=== PATIENT | male | born 1950 | race Caucasian/White ===

== ENCOUNTER 2020-05-30 22:28 | Inpatient (IN) | payer MEDICARE ==
[~2020-05-30 22:28] MED LIST: Heparin 10,000 UNITS/ 10 ML VIAL ONE; Metoprolol Tartrate 5 MG/5 ML VIAL ONE
[2020-05-30] MEDS ORDERED: Aspirin 300 MG Suppository ONE (22:45)
[2020-05-30 22:50] LABS: Actual Bicarbonate (HCO3a) 14.1 mEq/L (22-28); Analyzer IN Cardio ER; Base Excess (BEa) -14.9 mEq/L (-2.0 to +3.0); CO2 Tension 44.3 mmHg (35.0-45.0); Calcium, Ionized (arterial) 1.27 mmol/L (1.12-1.30); Carboxyhemoglobin (COHb) 2.6 gm% (0.0-3.0); Hemoglobin (Hb) 15.3 g/dL (14.0-18.0); O2 Tension (PaO2), arterial 315.8 mmHg (> 70.0)
[2020-05-30 22:54] LABS: pH, Arterial 7.12 (7.35-7.45)
[2020-05-30 22:55] LABS: ALV-art Gradient 341.825 mmHg (0-20); Puncture Site LRA
[2020-05-30 22:57] LABS: #Basophils 0.1 thou/uL (0.0-0.2); #Eosinphils 0.4 thou/uL (0.0-0.7); #Lymphocytes 5.3 thou/uL (1.20-3.40); #Monocytes 0.9 thou/uL (0.11-0.59); #Neutrophils 12.4 thou/uL (1.40-6.50); %Basophils 0.6 % (0.0-1.0); %Eosinophils 2.3 % (0.0-10.0); %Lymphocytes 27.5 % (21.0-51.0); %Monocytes 4.8 % (0.0-10.0); %Neutrophils 64.8 % (42.0-75.0); Hemoglobin 15.6 g/dL (14.0-18.0); Mean Corpuscular HGB CONC 33.7 g/dL (32.0-36.0); Mean Corpuscular Volume 95.1 fL (78.0-98.0); Mean Platelet Volume 8.7 fL (7.4-10.4); Platelet Count 227 thou/uL (130-400); RBC Distribution Width 12.9 % (11.5-14.5); Red Blood Cell (RBC) Count 4.87 mill/uL (4.70-6.10); White Blood Cell (WBC) Count 19.2 thou/uL (4.8-10.8)
[2020-05-30 23:02] LABS: INR-International Normal Ratio 1.1; Prothrombin Time 14.3 sec (12.0-14.7)
[2020-05-30] MEDS ORDERED: fentaNYL Citrate/PF 2,000 MCG in Sodium Chloride 0.9% 60 ML IV SCH (23:15)
[2020-05-30 23:18] LABS: ALT (SGPT) 479 U/L (8-55); AST (SGOT) 557 U/L (5-34); Albumin 3.9 g/dL (3.4-4.8); Alkaline Phosphatase 79 U/L (40-110); Anion Gap 27 mmol/L (10-20); BUN (Urea Nitrogen) 20 mg/dL (8.4-25.7); Bilirubin, Total 0.6 mg/dL (0.2-1.2); Calc. Creatinine Clearance 0 mL/min (70-130); Calcium 9.8 mg/dL (7.8-10.44); Carbon Dioxide 13 mmol/L (23-31); Chloride 105 mmol/L (98-107); Estimated GFR-MDRD 53; Globulin 2.9 g/dL (2.4-3.5); Glucose 174 mg/dL (83-110); Potassium 3.2 mmol/L (3.5-5.1); Protein, Total 6.8 g/dL (5.8-8.1); Sodium 142 mmol/L (136-145)
[2020-05-30 23:19] LABS: Acetaminophen Less than 6.0 mcg/mL (10.0-30.0); Alcohol 26 mg/dL (Less than 10); Lipase 41 U/L (8-78); Magnesium 2.3 mg/dL (1.6-2.6); Salicylate Less than 8.0 mg/dL (15.0-30.0)
--- NOTE | 2020-05-30 23:32 | RAD ---
Chest one view HISTORY: Dyspnea. CODE BLUE in progress. FINDINGS: Extensive overlying artifact. Mediastinum is midline. Nasogastric tube descends to the abdo men. No gross pneumothorax or lobar consolidation evident. Tip of the endotracheal catheter overlies the thoracic inlet. IMPRESSION : Endotracheal catheter is in good radiographic position.
[2020-05-30] MEDS ORDERED: Heparin 10,000 UNITS/ 10 ML VIAL ONE (23:57)
[2020-05-30] MEDS ORDERED: Atropine Sulfate 1 mg/10 ml Syringe ONE (23:57)
[2020-05-31] MEDS ORDERED: TICAGRELOR 90 MG TABLET ONE (00:04)
[2020-05-31 00:14] LABS: CKMB 41.8 ng/mL (0-6.6)
[2020-05-31] MEDS ORDERED: Propofol 1,000 MG/100 ML VIAL IV ONE (01:09)
--- NOTE | 2020-05-31 01:11 | HP ---
INDICATION FOR ADMISSION: This is a 69-year-old gentleman with acute ST-segment elevation anterior myocardial infarction. HISTORY OF PRESENT ILLNESS: This is a 69-year-old gentleman with a very little history. No family was available. We attempted the phone call, still no available family. Apparently, it was a witnessed collapse at home when CPR was initiated by the family members. EMS was called. They arrived, he was given medications, epinephrine, bicarb, calcium, and was resuscitated. He was brought to the emergency room and still suffered an acute anterior myocardial infarction. He will be taken emergently to the cardiac labor economics professor. PAST MEDICAL HISTORY: Only significant for prostate cancer. We have no other past medical history. SOCIAL HISTORY: Unknown. FAMILY HISTORY: Unknown. ALLERGIES: UNCLEAR. HOME MEDICATIONS: 1. There are no medications listed. He was given also en route Ativan, ketamine, and etomidate. 2. He had been given epinephrine, bicarb, and calcium. 3. At the time in the emergency room, he also was given metoprolol, aspirin, 5000 heparin, and he is on a dopamine drip when I originally arrived to the emergency room. REVIEW OF SYSTEMS: Unobtainable. PHYSICAL EXAMINATION: GENERAL: Reveals a well-developed, well-nourished, thin gentleman in no acute distress. It is unable to determine that because he is already intubated and sedated. VITAL SIGNS: Blood pressure is 108/65, heart rate is 91 and shows atrial fibrillation. HEENT: Unremarkable. CHEST: Clear anteriorly. CARDIOVASCULAR: Reveals an irregularly irregular rhythm. Heart sounds are somewhat distant. There were no gross murmurs. ABDOMEN: Soft, flat, and no obvious masses. EXTREMITIES: Show no clubbing, cyanosis, or edema. Pedal pulses are difficult to palpate. NEUROLOGICAL: Again, the patient is sedated. DIAGNOSTIC STUDIES: EKG shows atrial fibrillation with acute anterior myocardial infarction. Laboratory data is pending. IMPRESSION: To take the patient urgently to the cardiac labor economics professor due to the myocardium at risk with a large anterior myocardial infarction. No family members were available. In the emergency situation, it was initiated and the patient was taken to the cardiac labor economics professor. Job ID: [id number]
[2020-05-31] MEDS ORDERED: Propofol 1,000 MG/100 ML VIAL IV PRN (01:15)
[2020-05-31] MEDS ORDERED: Mag-Al 1200 mg/1200 mg/30 ML UDCUP PO PRN (01:15)
[2020-05-31] MEDS ORDERED: Milk Of Magnesia 30 ML UDCUP PO PRN (01:15)
[2020-05-31] MEDS ORDERED: Acetaminophen/Codeine 30-300mg Tablet PO PRN ×2 (01:15)
[2020-05-31] MEDS ORDERED: Morphine 2 MG/ML VIAL SLOW IVP PRN (01:15)
[2020-05-31] MEDS ORDERED: Propofol BOLUS 1,000 MG/100 ML VIAL IV PRN (01:15)
[2020-05-31] MEDS ORDERED: Fentanyl BOLUS 250 ML IVPB PRN (01:15)
[2020-05-31] MEDS ORDERED: TICAGRELOR 90 MG TABLET PO SCH (01:15)
[2020-05-31] MEDS ORDERED: Zolpidem Tartrate 5 MG TAB PO PRN (01:15)
[2020-05-31] MEDS ORDERED: cloNIDine 0.1 MG TAB PO PRN (01:15)
[2020-05-31] MEDS: DOPamine 400 MG/D5W 250 ML 250 ML IVPB SCH ×6 (01:20→21:24)
[2020-05-31] MEDS: fentaNYL Citrate/PF 2,000 MCG in Sodium Chloride 0.9% 60 ML IV SCH ×2 (01:30→21:22)
[2020-05-31] MEDS ORDERED: Vecuronium 10 MG VIAL ONE (02:18)
[2020-05-31] MEDS ORDERED: Sterile Water 10 ML ONE (02:19)
[2020-05-31] MEDS: Vecuronium 10 MG VIAL IVP PRN ×2 (02:20→08:40)
[2020-05-31] MEDS ORDERED: Vecuronium 10 MG VIAL IV PRN (02:28)
[2020-05-31] MEDS ORDERED: Heparin 25,000 units/D5W 25,000 UNIT in Premix Bag 1 BAG IV SCH (03:00)
[2020-05-31] MEDS: Sodium Chloride 0.9% 1,000 ML IV SCH ×3 (03:01→23:15)
[2020-05-31 05:31] LABS: Troponin I 35.367 ng/mL (< 0.028)
[2020-05-31 07:41] VITALS: BMI 22.2
[2020-05-31 07:51] LABS: Actual Bicarbonate (HCO3a) 20.8 mEq/L (22-28); Base Excess (BEa) -4.3 mEq/L (-2.0 to +3.0); CO2 Tension 38.1 mmHg (35.0-45.0); Calcium, Ionized (arterial) 1.19 mmol/L (1.12-1.30); Carboxyhemoglobin (COHb) 0.5 gm% (0.0-3.0); O2 Tension (PaO2), arterial 87.9 mmHg (> 70.0); Potassium - ABG Lab 3.33 mmol/L (3.70-5.30); pH, Arterial 7.35 (7.35-7.45)
[2020-05-31 07:52] LABS: Puncture Site RFA
[2020-05-31 07:53] LABS: ALV-art Gradient 256.625 mmHg (0-20)
[2020-05-31 07:57] LABS: ALT (SGPT) 415 U/L (8-55); AST (SGOT) 646 U/L (5-34); Albumin 3.4 g/dL (3.4-4.8); Alkaline Phosphatase 57 U/L (40-110); Anion Gap 15 mmol/L (10-20); BUN (Urea Nitrogen) 25 mg/dL (8.4-25.7); Bilirubin, Total 0.5 mg/dL (0.2-1.2); Calc. Creatinine Clearance 57 mL/min (70-130); Calcium 8.5 mg/dL (7.8-10.44); Carbon Dioxide 16 mmol/L (23-31); Chloride 109 mmol/L (98-107); Estimated GFR-MDRD 63; Globulin 2.6 g/dL (2.4-3.5); Glucose 195 mg/dL (83-110); Potassium 3.4 mmol/L (3.5-5.1); Sodium 137 mmol/L (136-145)
[2020-05-31 08:05] LABS: Hemoglobin 14.9 g/dL (14.0-18.0); Mean Corpuscular HGB CONC 33.2 g/dL (32.0-36.0); Mean Corpuscular Hemoglobin 30.9 pg (27.0-31.0); Mean Corpuscular Volume 93.2 fL (78.0-98.0); Mean Platelet Volume 8.8 fL (7.4-10.4); Platelet Count 235 thou/uL (130-400); RBC Distribution Width 12.8 % (11.5-14.5); Red Blood Cell (RBC) Count 4.82 mill/uL (4.70-6.10)
[2020-05-31 08:08] LABS: Band 18 % (5-11); Lymphocytes 3 % (21-51); MDiff Complete? YES; Monocytes 4 % (0-10); Neutrophil 75 % (42-75); RBC Morphology Normal
--- NOTE | 2020-05-31 08:22 | RAD ---
Exam: Chest one view HISTORY:Intubated patient. Status post cardiac catheterization. Comparison: 05/30/2020 FINDINGS: Cardiac silhouette:Normal heart size Lines and tubes: Endotracheal tube at the level of the clavicles. Nasogastric tube extends below the diaphragm. Seen. Aorta: Unremarkable Pulmonary vessels: Normal Costophrenic angles: Clear LUNGS: No masses or consolidation. Pneumothorax: None Osseous abnormalities: None IMPRESSION: 1. No acute cardiopulmonary process. 2. Endotracheal and nasogastric tube as above.
[2020-05-31] MEDS: Lorazepam 2 MG/ML VIAL SLOW IVP PRN ×2 (08:40→12:20)
[2020-05-31] MEDS: TICAGRELOR 90 MG TABLET PO SCH ×2 (09:53→21:23)
[2020-05-31] MEDS: Aspirin Chewable 81 MG TAB PO SCH (09:53)
[2020-05-31] MEDS: Carvedilol 3.125 MG TAB PO SCH ×2 (09:54→21:23)
[2020-05-31] MEDS: Lisinopril 2.5 MG TAB PO SCH (09:54)
[2020-05-31 11:43] LABS: Critical Call Chem Troponin I 0; Troponin I Greater than 45.000 ng/mL (< 0.028)
[2020-05-31 15:46] LABS: SARS-CoV-2 MS2 Positive; SARS-CoV-2 N Gene Negative; SARS-CoV-2 S Gene Negative; SARS-CoV-2 by NAA Not Detected (NotDetected); SARS-CoV-2 orf1ab Negative
--- NOTE | 2020-06-01 00:55 | CON ---
DATE OF CONSULTATION: 05/31/2020 Mr. Olsen is a 69-year-old male who had an [id number]-kwxlcnby arrest. Family CPR followed by ENT arrival and resuscitation led to intubation. He has undergone cardiac catheterization. Surprisingly, chest x-ray is free of infiltrates. I was consulted because of his presence in the Critical Care Unit. PAST MEDICAL HISTORY: Remarkable for prostate cancer. FAMILY HISTORY: Unknown. SOCIAL HISTORY: Unknown. ALLERGIES: UNKNOWN. MEDICATIONS: Unknown. REVIEW OF SYSTEMS: Unknown. PHYSICAL EXAMINATION: GENERAL: He was examined earlier this morning. He was unresponsive, although he did have spontaneous respiratory movement, did respond to pain. VITAL SIGNS: Respiratory rate is 20, FiO2 is 55, heart rate in the 90s, blood pressure 110/66. This evening, he was examined twice today. LUNGS: Clear. HEART: Regular rhythm. ABDOMEN: Soft. EXTREMITIES: Without asymmetry or edema. LABORATORY DATA: White count 27, hemoglobin 14.9, platelets 235. Sodium 137, potassium 3.4, chloride 109, bicarb 16, BUN 25, creatinine 1.15. is greater than 45. As of this morning, pH 7.35, CO2 38, PO2 87. IMPRESSION: 1. Myocardial infarction. 2. Status post emergent cardiac catheterization. 3. Status post prolonged CPR with unclear neurological status. We will continue mechanical ventilation, awaiting hopeful recovery of neurological function before we consider weaning or extubation. He is not clinically in congestive heart failure at this time, which is a plus. He is also not brain . He has spontaneous respiratory effort, but he has a very low functional neurological level at this point in time. We will continue to follow the other physicians caring for him. CRITICAL CARE TIME: 30 minutes. Job ID: [id number] MTDD
[2020-06-01] MEDS: DOPamine 400 MG/D5W 250 ML 250 ML IVPB SCH ×3 (03:29→21:27)
[2020-06-01] MEDS: Lorazepam 2 MG/ML VIAL SLOW IVP PRN (04:25)
[2020-06-01] MEDS: Vecuronium 10 MG VIAL IVP PRN (04:25)
[2020-06-01 04:32] LABS: #Lymphocytes 1.7 thou/uL (1.20-3.40); #Neutrophils 17.5 thou/uL (1.40-6.50); %Basophils 0.1 % (0.0-1.0); %Eosinophils 0.2 % (0.0-10.0); %Monocytes 9.4 % (0.0-10.0); %Neutrophils 82.4 % (42.0-75.0); Mean Corpuscular HGB CONC 33.3 g/dL (32.0-36.0); Mean Corpuscular Hemoglobin 31.5 pg (27.0-31.0); Mean Corpuscular Volume 94.6 fL (78.0-98.0); Mean Platelet Volume 9.4 fL (7.4-10.4); Platelet Count 185 thou/uL (130-400); RBC Distribution Width 12.8 % (11.5-14.5); Red Blood Cell (RBC) Count 4.44 mill/uL (4.70-6.10); White Blood Cell (WBC) Count 21.2 thou/uL (4.8-10.8)
[2020-06-01 04:38] LABS: ALT (SGPT) 296 U/L (8-55); AST (SGOT) 301 U/L (5-34); Albumin 3.4 g/dL (3.4-4.8); Alkaline Phosphatase 47 U/L (40-110); Anion Gap 13 mmol/L (10-20); BUN (Urea Nitrogen) 32 mg/dL (8.4-25.7); Bilirubin, Total 0.8 mg/dL (0.2-1.2); Calc. Creatinine Clearance 73 mL/min (70-130); Calcium 8.4 mg/dL (7.8-10.44); Carbon Dioxide 23 mmol/L (23-31); Chloride 106 mmol/L (98-107); Estimated GFR-MDRD 83; Globulin 2.7 g/dL (2.4-3.5); Glucose 167 mg/dL (83-110); Magnesium 1.6 mg/dL (1.6-2.6); Phosphorus 3.5 mg/dL (2.3-4.7); Potassium 3.8 mmol/L (3.5-5.1); Protein, Total 6.1 g/dL (5.8-8.1); Sodium 138 mmol/L (136-145)
[2020-06-01 07:27] LABS: Actual Bicarbonate (HCO3a) 21.5 mEq/L (22-28); Base Excess (BEa) -2.7 mEq/L (-2.0 to +3.0); CO2 Tension 35.7 mmHg (35.0-45.0); Calcium, Ionized (arterial) 1.16 mmol/L (1.12-1.30); Carboxyhemoglobin (COHb) 0.6 gm% (0.0-3.0); Hemoglobin (Hb) 14.5 g/dL (14.0-18.0); O2 Tension (PaO2), arterial 227.1 mmHg (> 70.0); Potassium - ABG Lab 3.54 mmol/L (3.70-5.30)
[2020-06-01 07:28] LABS: ALV-art Gradient 441.275 mmHg (0-20); Puncture Site Arterial Line
--- NOTE | 2020-06-01 07:52 | PDOC.BPN ---
- Brief Progress Note Encounter Date: 06/01/20 Encounter Time: 07:45 code blue called. responded to request for hospitalist at 7:10. Patient post PCI for AAMI 2 days ago. patient in SVT. given magnesium IV . rhythm converted to sinus tachycardia with PACs and PVCs. Spoke with Dr Hernandez, data security consultant cardiology. patient stable in RSR. Ended critical care at 7:45. formal consult pending
--- NOTE | 2020-06-01 08:05 | RAD ---
EXAM: Single view of the chest HISTORY: Respiratory failure status post intubation COMPARISON: 05/31/2020 FINDINGS: Single view of the chest shows a normal sized cardiomediastinal silhouette. The endotrache al tube and NG tube are unchanged in position. There is a veil like opacity in the left thorax which likely represents a layering pleural effusion. No acute osseous abnormality. IMPRESSION: Small left pleural effusion
[2020-06-01 08:06] LABS: Anion Gap 15 mmol/L (10-20); BUN (Urea Nitrogen) 28 mg/dL (8.4-25.7); Calc. Creatinine Clearance 78 mL/min (70-130); Calcium 8.2 mg/dL (7.8-10.44); Carbon Dioxide 20 mmol/L (23-31); Chloride 106 mmol/L (98-107); Estimated GFR-MDRD 90; Glucose 169 mg/dL (83-110); Magnesium 3.1 mg/dL (1.6-2.6); Phosphorus 3.3 mg/dL (2.3-4.7); Sodium 137 mmol/L (136-145)
[2020-06-01 08:10] LABS: #Lymphocytes 1.6 thou/uL (1.20-3.40); #Monocytes 2.1 thou/uL (0.11-0.59); #Neutrophils 16.5 thou/uL (1.40-6.50); %Eosinophils 0.1 % (0.0-10.0); %Lymphocytes 8.1 % (21.0-51.0); %Monocytes 10.2 % (0.0-10.0); %Neutrophils 81.6 % (42.0-75.0); Hemoglobin 13.6 g/dL (14.0-18.0); Mean Corpuscular HGB CONC 31.7 g/dL (32.0-36.0); Mean Corpuscular Hemoglobin 30.1 pg (27.0-31.0); Mean Corpuscular Volume 94.9 fL (78.0-98.0); Mean Platelet Volume 9.8 fL (7.4-10.4); Platelet Count 187 thou/uL (130-400); RBC Distribution Width 12.8 % (11.5-14.5); Red Blood Cell (RBC) Count 4.51 mill/uL (4.70-6.10); White Blood Cell (WBC) Count 20.2 thou/uL (4.8-10.8)
[2020-06-01 08:23] LABS: Band 16 % (5-11); Lymphocytes 6 % (21-51); MDiff Complete? YES; Monocytes 11 % (0-10); Neutrophil 67 % (42-75); RBC Morphology Normal
[2020-06-01 09:03] LABS: CKMB 74.3 ng/mL (0-6.6); Troponin I 24.492 ng/mL (< 0.028)
[2020-06-01] MEDS: Aspirin Chewable 81 MG TAB PO SCH ×2 (09:12→15:09)
[2020-06-01] MEDS: TICAGRELOR 90 MG TABLET PO SCH ×3 (09:12→21:27)
[2020-06-01] MEDS: Carvedilol 3.125 MG TAB PO SCH ×2 (09:12→21:27)
[2020-06-01] MEDS: Lisinopril 2.5 MG TAB PO SCH (09:12)
[2020-06-01] MEDS: Ondansetron PF 4 MG/2 ML Vial IVP PRN ×2 (10:01→15:08)
[2020-06-01] MEDS ORDERED: Amiodarone 150 MG, Admixture Fee 1 EACH in Dextrose 5% in Water 100 ML IVPB SCH (10:15)
[2020-06-01] MEDS: Amiodarone 450 MG, Admixture Fee 1 EACH in Dextrose 5% in Water 250 ML IVPB SCH ×2 (10:49→17:10)
[2020-06-01] MEDS ORDERED: FLU VACC QS2020-21(65YR UP)/PF 240 MCG/0.7 ML SYRINGE IM ONE (11:00)
--- NOTE | 2020-06-01 11:19 | PDOC.PALCO ---
Palliative Care Consult - Consult Details Requesting Physician: Dr Diaz Reason for Consult: goals of care, assistance with communication prognosis/disease, complex decision-making - Pertinent HPI 69 year old male who moved to [place] 4-5 years ago to live close to his brother and his . He had just finished visiting with them, went to his camper that is on their property, then returned with complaint of chest pain. He collapsed and CPR was initiated as well as notification of EMS. Intubated, transported to Emergency room where he suffered an acute anterior myocaridal infarction. Emergency to the cardiac cathead worker, subsequent admission to CCU. - Social History Smoking Status: Current every day smoker Alcohol Use: occasional Drug Use History: none Living Situation: independent - Medications MAR Reviewed: Yes - Allergies Allergies/Adverse Reactions: Allergies Allergy/AdvReac Type Severity Reaction Status Date / Time No Known Allergies Allergy Unverified 05/30/20 23:08 - Subjective Non responsive, intubated, sedated. - ROS Non Response: due to endotracheal tube, due to mental status - Objective Vital Signs: Vital Signs - Most Recent Temp Pulse Resp BP Pulse Ox 99.4 F 118 H 20 120/76 100 06/01/20 08:00 06/01/20 10:46 06/01/20 10:00 06/01/20 09:12 06/01/20 08:00 Palliative Performance Scale: 20 - Physical Exam Constitutional: encephalitic, ill appearing HEENT: moist MMs, sclera anicteric Respiratory: no wheezing Cardiovascular: irregular Gastrointestinal: soft, non-tender Genitourinary: thrasher catheter Musculoskeletal: no cyanosis, no clubbing, no edema Deviation from normal: No purposeful movement Skin: cap refill <2 seconds Deviation from normal: Non responsive - Problem List (1) Acute myocardial infarction due to left coronary artery occlusion Code(s): I21.9 - ACUTE MYOCARDIAL INFARCTION, UNSPECIFIED Current Visit: Yes Status: Acute (2) Anoxic brain injury Current Visit: Yes Status: Acute (3) Hypotension Current Visit: Yes Status: Acute Qualifiers: Hypotension type: other hypotension type Qualified Code(s): I95.89 - Other hypotension (4) Ventricular tachycardia Code(s): I47.2 - VENTRICULAR TACHYCARDIA Current Visit: Yes Status: Acute (5) Cardiomyopathy Code(s): I42.9 - CARDIOMYOPATHY, UNSPECIFIED Current Visit: Yes Status: Suspected Qualifiers: Cardiomyopathy type: ischemic Qualified Code(s): I25.5 - Ischemic cardiomyopathy - Plan/Recommendations Plan: Met with patient younger brother Patrick Olsen and his significant other Mercedes as well as patient girlfriend Josy. Patrick states he is MPOA and will forward documents to have placed in chart. Life review, [place] grew up [place] farm, moved to live with his brother the past 5 years on property in [place]. Enjoys motorcycles and has a Yorkie he loves. No children Discussed cardiac events this morning, and concern of potential anoxic brain injury. Reviewed that decision Patrick would make would be what his brother would desire. Emotional Support and Therapeutic listening. Spiritual care consult placed [75] minutes spent on this encounter with >50% of the time in counseling and coordination of care. Thank you for this very appropriate consult.
--- NOTE | 2020-06-01 13:28 | CON ---
DATE OF CONSULTATION: Consultation to Dr. Ronny Diaz. I first saw Mr. Olsen this morning shortly after 7 o'clock when a request was made overhead for hospitalist in room C6. Mr. Olsen at that time was intubated and ventilated, was in sustained ventricular tachycardia. At that point, he was given IV magnesium, settled into an intermittent sinus rhythm, supraventricular tachycardia, occasional PVCs in couplets. He did have adequate blood pressure. His neurological exam at that time, he was noted to have nonfocal reflexes. He did have small pupils which were responsive when I first saw him. He is currently still intubated, ventilated, currently unresponsive. IMMEDIATE PAST MEDICAL HISTORY: Pertinent for an acute anterior myocardial infarction post PCI by Dr. Ronny Diaz. He apparently had a witnessed collapse at home where CPR was initiated by family members. His other past medical history included only prostate cancer. FAMILY HISTORY: Father with history of heart attack and coronary artery disease. OUTPATIENT MEDICATIONS: None. SOCIAL HISTORY: . at bedside. Code status, Smokes one pack of cigarettes a day. REVIEW OF SYSTEMS: Unobtainable due to his intubated state. PHYSICAL EXAMINATION: VITAL SIGNS: Current vital signs is blood pressure 117/81, pulse is ranging from one teens to 130. He is ventilated. FiO2 is currently 50%. HEENT: Reveals pupils to be approximately 4 mm and fixed. Negative doll's eyes. Sclerae are white. Tympanic membranes clear. Nose is clear. Oral mucous membranes are dry. Dental hygiene is fair. NECK: No jugular venous distention, adenopathy, or thyromegaly. CHEST: Breath sounds grossly clear bilaterally. HEART: Regular rate and rhythm with frequent irregular beats. No distinct murmurs heard. ABDOMEN: Soft. Bowel sounds are diminished. No tenderness. No pain. EXTREMITIES: No cyanosis or edema. PULSES: Carotid, radial pulses and femoral pulses intact. Pedal pulses were somewhat difficultly palpated. SKIN: Warm and dry. HEME/LYMPH: Revealed no tender or swollen lymph nodes in axilla, inguinal, or cervical area. NEUROLOGIC: Pupils equal but unreactive. Negative doll's eyes. Facies symmetric. Deep tendon reflexes diffusely diminished symmetrically. Toes downgoing bilaterally. IMAGING DATA: Chest x-ray done 05/10, revealed endotracheal and nasogastric tube. No other distinct abnormality. EKG shows acute anterior [place] with PACs and PVCs, both were looked at by myself. LABORATORY DATA: CBC; white count 20.2, hemoglobin 13.6, platelet count 187,000. Activated clotting time done yesterday 131. Most recent blood gas; pH 7.40, CO2 of 35.7, O2 of 221.7 on PEEP 100% O2. Comp metabolic profile shows sodium 137, potassium 4.0, BUN 28, creatinine 0.84, blood sugar 170, elevated AST and ALT. Troponin has dropped from 45,000 to 25,000. Toxicology showed a blood alcohol of 26. COVID was negative. ASSESSMENT: Acute anterior wall myocardial infarction, sustained ventricular tachycardia, reperfusion rhythm abnormalities, cardiomyopathy, anoxic brain injury, severe coronary artery disease. PLAN: The patient is currently intubated. On IV amiodarone for rhythm abnormality suppression. The patient also on aspirin, Coreg, and lisinopril ordered. Sedation protocol currently off. Add Brilinta to current medication regimen. Currently, an echocardiogram has been ordered. Thank you for the consult. We will follow closely. Discuss with Cardiology, Pulmonology. Job ID: [id number] ROBERTO
--- NOTE | 2020-06-01 14:13 | PQF ---
CLINICAL DOCUMENTATION CLARIFICATION FORM: Dear Dr. Jim Johnson Date: 06/01/2020 8781 Please exercise your independent, professional judgment in responding to the clarification form. Clinical indicators areprovided on the bottom of this form for your review. Please check appropriate box(es): [ ] Acute Respiratory Failure: [ ] with Hypoxia [ ] with Hypercapnia [ x ] Acute Respiratory Failure due to: (etiology) __post cardiopulmonary arrest [ ] Hypoxia [ ] Other diagnosis [ ] Unable to determine In addition, please specify: Present on Admission (POA): [x ] Yes [ ] No [ ] Unable to determine For continuity of documentation, please document condition throughout progress notes and discharge summary. Thank You. To be completed by CDI/Coding staff for physician review: CLINICAL INDICATORS - SIGNS / SYMPTOMS / LABS / RESULTS AND LOCATION IN MR Pt arrived intubated on ventilator support// GCS 3, ROSC status post approximately 30 minutes of CPR. (ED report ) 05/30 05/30 ABG PH 7.12 RISK FACTORS / RESULTS AND LOCATION IN MR Large anterior myocardial infarction (Emily/ H& P ) 05/31 Anoxic brain injury ( lAex/ consult ) 06/01 TREATMENTS / RESULTS AND LOCATION IN MR Mechanical Ventilation (05/31 present) Pulmonology consult ( 06/01) Acute Respiratory Failure: ABG pH < 7.35 or > 7.45; Decreased oxygen saturation (<90% room air or < 95% on oxygen); PCO2 > 50 mm Hg; PO2 < 60 mm Hg; Labored or rapid respirations ARDS: Dx Criteria [[place] ARDS]: Respiratory symptoms within one week of a known clinical insult (e.g. shock, infection, surgery, trauma) Bilateral opacities in CXR/Chest CT not due to CHF or fluid THANK YOU! CDS Signature: Maura Eastman RN Phone #: [phone] Date: 06/01/2020 This is a permanent part of the Medical Record [facility]
[2020-06-01] MEDS: Scopolamine 1.5 mg/72 hour Patch TD SCH (14:35)
[2020-06-01] MEDS: Sodium Chloride 0.9% 1,000 ML IV SCH ×2 (14:36→17:07)
--- NOTE | 2020-06-01 17:40 | PRG ---
DATE OF SERVICE: 06/01/2020 SUBJECTIVE: Mr. Olsen had a ventricular tachycardia arrest again this morning. He was resuscitated. I met with family afterwards. OBJECTIVE: VITAL SIGNS: Heart rates in the 90s, blood pressure , respiratory rate is 20. NEUROLOGICAL: There has really been no change in his neurological exam. There has been no meaningful improvement. LUNGS: Clear. HEART: Regular rhythm. ABDOMEN: Soft. LABORATORY DATA: White count 20, hemoglobin 13.6, and platelets 187. Sodium 137, potassium 4, chloride 106, bicarb 20, BUN 28, creatinine 0.8. PH 7.4, CO2 of 35, pO2 of 227. IMPRESSION AND PLAN: Cardiac arrest secondary to recent myocardial infarction. His prognosis is quite guarded for neurological recovery. I met with family and answered all their questions. We will continue . CRITICAL CARE TIME: 30 minutes. Job ID: [id number]
[2020-06-02] MEDS: Lorazepam 2 MG/ML VIAL SLOW IVP PRN (00:48)
[2020-06-02] MEDS: Vecuronium 10 MG VIAL IVP PRN (00:48)
[2020-06-02] MEDS: fentaNYL Citrate/PF 2,000 MCG in Sodium Chloride 0.9% 60 ML IV SCH (03:11)
--- NOTE | 2020-06-02 07:41 | PDOC.HOSPP ---
- Subjective Encounter Date: 06/02/20 Encounter Time: 07:34 Subjective: spontaneous blinking. intubated - Objective Vital Signs & Weight: Vital Signs (12 hours) Temp Resp Pulse Ox 06/02/20 06:00 20 06/02/20 04:00 99.9 F H 20 06/02/20 02:00 20 06/02/20 00:00 99.5 F 20 06/01/20 22:00 20 06/01/20 20:00 99.5 F 20 100 Weight Admit Weight 150 lb Weight 150 lb 9.211 oz Most Recent Monitor Data Heart Rate from ECG 68 NIBP 99/63 NIBP BP-Mean 75 Respiration from ECG 20 SpO2 100 I&O: 06/01/20 06/02/20 06/03/20 06:59 06:59 06:59 Intake Total 3501.1 3349 Output Total 1315 1543 Balance 2186.1 1806 Result Diagrams: 06/01/20 07:30 06/01/20 07:30 Additional Labs: Accuchecks 06/01/20 14:48 POC Glucose 161 H Hospitalist ROS - Medication Medications: Active Medications Generic Name Dose Route Start Last Admin Trade Name Freq PRN Reason Stop Dose Admin Aspirin 81 mg 05/31/20 09:00 06/01/20 15:09 Aspirin Chewable 81 Mg Tab PO 81 mg DAILY JAMSHID Administration Carvedilol 3.125 mg 05/31/20 09:00 06/01/20 21:27 Carvedilol 3.125 Mg Tab PO 3.125 mg BID JAMSHID Administration Sodium Chloride 1,000 mls @ 85 mls/hr 05/31/20 01:15 06/01/20 17:07 Normal Saline 0.9% IV 1,000 mls .[id number] JAMSHID Administration Dopamine HCl/Dextrose 250 mls @ 0 mls/hr 05/31/20 01:15 06/01/20 21:27 Dopamine 400 Mg/D5w 250 Ml IVPB 250 mls INF JAMSHID Administration Protocol As Directed Fentanyl Citrate 2,000 mcg/ 100 mls @ 0 mls/hr 05/31/20 01:15 06/02/20 03:11 Sodium Chloride IV 06/30/20 01:15 100 mls INF JAMSHID Administration Protocol Per Protocol Amiodarone HCl 450 mg/ 259 mls @ 0 mls/hr 06/01/20 10:15 06/01/20 17:10 Miscellaneous Medication 1 IVPB 259 mls each/ Dextrose/Water INF JAMSHID Administration Protocol As Directed Lisinopril 2.5 mg 05/31/20 09:00 06/01/20 09:12 Lisinopril 2.5 Mg Tab PO Not Given DAILY JAMSHID Lorazepam 2 mg 05/31/20 01:15 06/02/20 00:48 Lorazepam 2 Mg/Ml Vial SLOW IVP 06/30/20 01:15 2 mg Q1H PRN Administration Breakthrough agitation Ondansetron HCl 4 mg 05/31/20 11:27 06/01/20 15:08 Ondansetron Pf 4 Mg/2 Ml Vial IVP 4 mg Q6H PRN Administration Nausea/Vomiting Propofol 1,000 mg 05/31/20 01:15 05/31/20 01:15 Propofol 1,000 Mg/100 Ml Vial IV 06/30/20 01:15 1,000 mg INF PRN Administration TO ACHIEVE GOAL RASS Protocol Scopolamine 1.5 mg 06/01/20 14:00 06/01/20 14:35 Scopolamine 1.5 Mg/72 Hour Patch TD 1.5 mg Q3D JAMSHID Administration Sodium Chloride 10 ml 05/31/20 09:00 06/01/20 21:27 Flush - Normal Saline 10 Ml Syringe IVF 10 ml Q12HR JAMSHID Administration Ticagrelor 90 mg 05/31/20 09:00 06/01/20 21:27 Ticagrelor 90 Mg Tablet PO 90 mg BID JAMSHID Administration Vecuronium [place] 10 mg 05/31/20 02:35 06/02/20 00:48 Vecuronium 10 Mg Vial IVP 10 mg Q30M PRN Administration VENT COMPLIANCE - Exam Neck: no JVD Heart: RRR, no murmur Respiratory - other findings: coarse BS Gastrointestinal: soft, normal bowel sounds Extremities: no edema Neurological - other findings: pupils 4mm, fixed. toes downgoing Hosp A/P (1) Anoxic brain injury Status: Acute (2) Acute myocardial infarction due to left coronary artery occlusion Code(s): I21.9 - ACUTE MYOCARDIAL INFARCTION, UNSPECIFIED Status: Acute (3) Ventricular tachycardia Code(s): I47.2 - VENTRICULAR TACHYCARDIA Status: Acute (4) Hypotension Status: Acute Qualifiers: Hypotension type: other hypotension type Qualified Code(s): I95.89 - Other hypotension (5) Cardiomyopathy Code(s): I42.9 - CARDIOMYOPATHY, UNSPECIFIED Status: Acute Qualifiers: Cardiomyopathy type: ischemic Qualified Code(s): I25.5 - Ischemic cardiomyopathy - Plan on vent iv amiodarone for V tach on dopamine for hypotension/cardiogenic shock antoplatelet Tx
[2020-06-02] MEDS: Amiodarone 450 MG, Admixture Fee 1 EACH in Dextrose 5% in Water 250 ML IVPB SCH ×2 (07:58→18:04)
[2020-06-02] MEDS: Lisinopril 2.5 MG TAB PO SCH (08:03)
[2020-06-02 09:11] LABS: Anion Gap 12 mmol/L (10-20); BUN (Urea Nitrogen) 31 mg/dL (8.4-25.7); Calc. Creatinine Clearance 71 mL/min (70-130); Calcium 8.2 mg/dL (7.8-10.44); Carbon Dioxide 24 mmol/L (23-31); Chloride 106 mmol/L (98-107); Estimated GFR-MDRD 81; Glucose 140 mg/dL (83-110); Potassium 3.8 mmol/L (3.5-5.1); Sodium 138 mmol/L (136-145)
[2020-06-02] MEDS: Carvedilol 3.125 MG TAB PO SCH ×2 (09:12→20:45)
[2020-06-02] MEDS: Aspirin Chewable 81 MG TAB PO SCH (09:12)
[2020-06-02] MEDS: TICAGRELOR 90 MG TABLET PO SCH ×2 (09:12→20:46)
[2020-06-02 09:22] LABS: Critical Call Chem Troponin I RESULT DECREASING; Troponin I 16.722 ng/mL (< 0.028)
[2020-06-02] MEDS: Sodium Chloride 0.9% 1,000 ML IV SCH ×3 (09:31→21:45)
--- NOTE | 2020-06-02 10:23 | RAD ---
PORTABLE CHEST 1 VIEW: DATE: 06/02/2020. TIME: 9:21 AM. HISTORY: Respiratory failure, myocardial infarction. COMPARISON: Previous day. FINDINGS: No significant interval change is seen. The endotracheal and nasogastric tubes remain in place. A l ayering left pleural effusion with atelectatic change at the left lung base is again seen. No pneumo thoraces are identified. IMPRESSION: Stable exam. POS: OFF
[2020-06-02] MEDS: DOPamine 400 MG/D5W 250 ML 250 ML IVPB SCH ×2 (10:39→23:22)
--- NOTE | 2020-06-02 11:32 | PDOC.PALPN ---
Palliative Progress Note - Subjective remains intubated with mechanical ventilation, no spontaneous respirations. Eyes open and blinking but does not appear to respond to name. - Objective Vital Signs: Vital Signs - Most Recent Temp Pulse Resp BP Pulse Ox 98.5 F 97 20 102/62 100 06/02/20 07:00 06/02/20 10:48 06/02/20 10:00 06/02/20 10:48 06/02/20 08:00 - Physical Exam Constitutional: ill appearing HEENT: EOMI, moist MMs Deviation from normal: Mechanical ventilation Gastrointestinal: soft, non-tender Genitourinary: thrasher catheter Musculoskeletal: no cyanosis, no clubbing Skin: cap refill <2 seconds - Assessment (1) Acute myocardial infarction due to left coronary artery occlusion Code(s): I21.9 - ACUTE MYOCARDIAL INFARCTION, UNSPECIFIED Current Visit: Yes Status: Acute (2) Anoxic brain injury Current Visit: Yes Status: Acute (3) Cardiomyopathy Code(s): I42.9 - CARDIOMYOPATHY, UNSPECIFIED Current Visit: Yes Status: Acute Qualifiers: Cardiomyopathy type: ischemic Qualified Code(s): I25.5 - Ischemic cardiomyopathy (4) Hypotension Current Visit: Yes Status: Acute Qualifiers: Hypotension type: other hypotension type Qualified Code(s): I95.89 - Other hypotension (5) Ventricular tachycardia Code(s): I47.2 - VENTRICULAR TACHYCARDIA Current Visit: Yes Status: Acute - Plan Plan: Communicated with patient LORRI and brother Ruma. Brother is understanding of poor prognosis, however would like to allow for a week post CPR to make a decision in relation to Trach/peg or withdraw of care. He feels he owes the time to his brother. Will continue to address resuscitation status even though the desire is to wait to Wednesday 06/06 to further discuss Goal of Care. [35] minutes spent on this encounter with >50% of the time in counseling and coordination of care. - ROS Non Response: due to endotracheal tube, due to mental status
[2020-06-02] MEDS ORDERED: levETIRAcetam in NS 3,000 MG in Premix Bag 2 BAG IVPB SCH (12:00)
--- NOTE | 2020-06-02 12:37 | CON ---
NEUROLOGY CONSULTATION DATE OF CONSULTATION: 06/02/2020 REASON FOR CONSULTATION: Altered mental status. HISTORY OF PRESENT ILLNESS: Mr. Olsen is a 69-year-old male presented to the hospital status post cardiac arrest and he was down for about 30 minutes prior to arrival to the hospital. Per records, there was a witnessed collapse at home where CPR was initiated by the family members. EMS were called and he was given epinephrine, bicarb, calcium, and resuscitated. He was down for about 30 minutes and then brought to the emergency room and had an acute anterior myocardial infarction . In the emergency room, he was given metoprolol, aspirin, and heparin and started on dopamine drip. He was taken emergently to the rn labor delivery, and since then, the patient has been altered since admission on 05/30/2020. Neurology was called for prognosis. Review of systems: Unobtainable due to patient mental status PAST MEDICAL HISTORY: Significant for prostate cancer. SOCIAL HISTORY: Unknown. FAMILY HISTORY: Unknown. Allergies: No known drug allergies Vital Signs & Weight: Vital Signs (12 hours) Temp Resp Pulse Ox 06/02/20 06:00 20 06/02/20 04:00 99.9 F H 20 06/02/20 02:00 20 06/02/20 00:00 99.5 F 20 06/01/20 22:00 20 06/01/20 20:00 99.5 F 20 100 Weight Admit Weight 150 lb Weight 150 lb 9.211 oz Most Recent Monitor Data Heart Rate from ECG 68 NIBP 99/63 NIBP BP-Mean 75 Respiration from ECG 20 SpO2 100 I&O: 06/01/20 06/02/20 06/03/20 06:59 06:59 06:59 Intake Total 3501.1 3349 Output Total 1315 1543 Balance 2186.1 1806 Additional Labs: Accuchecks 06/01/20 14:48 POC Glucose 161 H Active Medications Generic Name Dose Route Start Last Admin Trade Name Freq PRN Reason Stop Dose Admin Aspirin 81 mg 05/31/20 09:00 06/01/20 15:09 Aspirin Chewable 81 Mg Tab PO 81 mg DAILY JAMSHID Administration Carvedilol 3.125 mg 05/31/20 09:00 06/01/20 21:27 Carvedilol 3.125 Mg Tab PO 3.125 mg BID JAMSHID Administration Sodium Chloride 1,000 mls @ 85 mls/hr 05/31/20 01:15 06/01/20 17:07 Normal Saline 0.9% IV 1,000 mls .[id number] JAMSHID Administration Dopamine HCl/Dextrose 250 mls @ 0 mls/hr 05/31/20 01:15 06/01/20 21:27 Dopamine 400 Mg/D5w 250 Ml IVPB 250 mls INF JAMSHID Administration Protocol As Directed Fentanyl Citrate 2,000 mcg/ 100 mls @ 0 mls/hr 05/31/20 01:15 06/02/20 03:11 Sodium Chloride IV 06/30/20 01:15 100 mls INF JAMSHID Administration Protocol Per Protocol Amiodarone HCl 450 mg/ 259 mls @ 0 mls/hr 06/01/20 10:15 06/01/20 17:10 Miscellaneous Medication 1 IVPB 259 mls each/ Dextrose/Water INF JAMSHID Administration Protocol As Directed Lisinopril 2.5 mg 05/31/20 09:00 06/01/20 09:12 Lisinopril 2.5 Mg Tab PO Not Given DAILY JAMSHID Lorazepam 2 mg 05/31/20 01:15 06/02/20 00:48 Lorazepam 2 Mg/Ml Vial SLOW IVP 06/30/20 01:15 2 mg Q1H PRN Administration Breakthrough agitation Ondansetron HCl 4 mg 05/31/20 11:27 06/01/20 15:08 Ondansetron Pf 4 Mg/2 Ml Vial IVP 4 mg Q6H PRN Administration Nausea/Vomiting Propofol 1,000 mg 05/31/20 01:15 05/31/20 01:15 Propofol 1,000 Mg/100 Ml Vial IV 06/30/20 01:15 1,000 mg INF PRN Administration TO ACHIEVE GOAL RASS Protocol Scopolamine 1.5 mg 06/01/20 14:00 06/01/20 14:35 Scopolamine 1.5 Mg/72 Hour Patch TD 1.5 mg Q3D JAMSHID Administration Sodium Chloride 10 ml 05/31/20 09:00 06/01/20 21:27 Flush - Normal Saline 10 Ml Syringe IVF 10 ml Q12HR JAMSHDI Administration Ticagrelor 90 mg 05/31/20 09:00 06/01/20 21:27 Ticagrelor 90 Mg Tablet PO 90 mg BID JAMSHID Administration Vecuronium [place] 10 mg 05/31/20 02:35 06/02/20 00:48 Vecuronium 10 Mg Vial IVP 10 mg Q30M PRN Administration VENT COMPLIANCE PHYSICAL EXAMINATION: GENERAL: A well-developed male who is intubated and sedated. HEENT: Unremarkable. CHEST: Clear. CARDIOVASCULAR: Irregularly irregular rhythm. Heart sounds are distant. ABDOMEN: Soft. NEUROLOGIC: Mental status; the patient is intubated and sedated. He does not follow commands. He does not maintain eye contact. No gaze preference seen. Cranial nerves; pupils 4 mm, round, and very sluggishly reactive to light. Face symmetric. Tongue midline. Corneals positive. Gag positive. Motor; muscle tone and bulk are normal. No spontaneous movement of all 4 extremities seen. Sensory; no withdrawal to all 4 extremities to nailbed pressure per nursing staff, and sedation was off. There was some minimal withdrawal in the bilateral lower extremities, but none in the upper extremities. Cerebellar could not be assessed due to altered mental status and gait deferred due to patient's safety reasons, not possible due to the patient's mental status. DATA REVIEWED: I reviewed the EKG, which showed atrial fibrillation with acute anterior myocardial infarction. EEG showed frequent spike and wave discharges and sometimes evolving, so frequent seizures are also seen during the preliminary recording. ASSESSMENT AND PLAN: Mr. Chico Olsen is a 69-year-old, status post cardiac arrest, consulted for altered mental status and prognosis. He does have brainstem reflexes, but partially preserved long tract signs, he is 72 hours post cardiac arrest with minimal neurological recovery. EEG also showed frequent seizures during the recording. Load with Keppra 3 g IV now and then start Keppra 1500 mg IV q.12 h. Observe seizure precaution. Ativan 2 mg IV for seizure greater than 2 minutes. Consider imaging of the brain when stable. Neuro checks every 2 hours. Continue medical management per primary team. Again, the prognosis is extremely guarded at this point. Plan discussed with the nursing staff and also with the ICU attending, Dr. Sibley. Thank you for the consult. Job ID: [id number] MTDD
[2020-06-02] MEDS ORDERED: levETIRAcetam in NS 1,500 MG in Premix Bag 1 BAG IVPB SCH ×2 (14:00→15:00)
--- NOTE | 2020-06-02 16:39 | PDOC.EEG ---
Neurology EEG Report - Report Report: This EEG was performed using 24 channel [employer] video digital EEG machine with 24 disc electrodes. This was an extended 3 hours 14 minutes of EEG recording. Digital analysis of the EEG was done for August and seizure detection which revealed no abnormalities. Background: The posterior background rhythm is 6-7 Hz. Photic stimulation: No response seen with photic stimulation. Hyperventilation: Not performed. Sleep: No stage change was observed. EEG diagnosis: Intermittent irregular theta activity seen throughout the recording intermixed with spikes and brief ictal discharges( electrographic seizures). . Nonsustained posterior background rhythm. Clinical interpretation: This EEG is consistent with interictal and ictal expresion of epilepsy in the setting of moderate generalized nonspecific cerebral dysfunction.
--- NOTE | 2020-06-02 19:30 | PDOC.CPN ---
- Subjective Date: 06/02/20 Time: 15:00 - Objective Allergies/Adverse Reactions: Allergies Allergy/AdvReac Type Severity Reaction Status Date / Time No Known Allergies Allergy Unverified 05/30/20 23:08 Visit Medications: Current Medications Acetaminophen/Codeine Phosphate (Acetaminophen/Codeine 30-300mg Tablet) 1 tab PO Q4H PRN PRN Reason: PAIN (1-3) Acetaminophen/Codeine Phosphate (Acetaminophen/Codeine 30-300mg Tablet) 2 tab PO Q4H PRN PRN Reason: PAIN (4-6) Al Hydroxide/Mg Hydroxide (Mag-Al 1200 Mg/1200 Mg/30 Ml Udcup) 30 ml PO Q3H PRN PRN Reason: Heartburn or Indigestion Aspirin (Aspirin Chewable 81 Mg Tab) 81 mg PO DAILY [facility] Last Admin: 06/02/20 09:12 Dose: 81 mg Documented by: Carvedilol (Carvedilol 3.125 Mg Tab) 3.125 mg PO BID [facility] Last Admin: 06/02/20 09:12 Dose: 3.125 mg Documented by: Clonidine (Clonidine 0.1 Mg Tab) 0.1 mg PO Q2H PRN PRN Reason: SBP GREATER THAN 160 Sodium Chloride (Normal Saline 0.9%) 1,000 mls @ 85 mls/hr IV .[id number] [facility] Last Admin: 06/02/20 17:44 Dose: 1,000 mls Documented by: Dopamine HCl/Dextrose (Dopamine 400 Mg/D5w 250 Ml) 250 mls @ 0 mls/hr IVPB INF JAMSHID; Protocol Last Admin: 06/02/20 10:39 Dose: 250 mls Documented by: Fentanyl Citrate 2,000 mcg/ (Sodium Chloride) 100 mls @ 0 mls/hr IV INF JAMSHID; Protocol Stop: 06/30/20 01:15 Last Admin: 06/02/20 03:11 Dose: 100 mls Documented by: Fentanyl Citrate (Fentanyl Bolus) 250 mls @ 0 mls/hr IVPB PRN PRN PRN Reason: Breakthrough pain/agitation Stop: 06/30/20 01:15 Amiodarone HCl 450 mg/Miscellaneous Medication 1 each/ Dextrose/Water 259 mls @ 0 mls/hr IVPB INF JAMSHID; Protocol Last Admin: 06/02/20 18:04 Dose: 259 mls Documented by: Dexmedetomidine HCl 200 mcg/ (Sodium Chloride) 50 mls @ 0 mls/hr IVPB INF JAMSHID; Protocol Levetiracetam 1,500 mg/ Device 100 mls @ 100 mls/hr IVPB 0000,1200 JAMSHID Levetiracetam 1,500 mg/ Device 100 mls @ 200 mls/hr IVPB 1400 JAMSHID Last Admin: 06/02/20 14:24 Dose: 100 mls Documented by: Levetiracetam 1,500 mg/ Device 100 mls @ 200 mls/hr IVPB 1500 [facility] Last Admin: 06/02/20 15:17 Dose: 100 mls Documented by: Lisinopril (Lisinopril 2.5 Mg Tab) 2.5 mg PO DAILY [facility] Last Admin: 06/02/20 08:03 Dose: Not Given Documented by: Lorazepam (Lorazepam 2 Mg/Ml Vial) 2 mg SLOW IVP Q1H PRN PRN Reason: Breakthrough agitation Stop: 06/30/20 01:15 Last Admin: 06/02/20 00:48 Dose: 2 mg Documented by: Magnesium Hydroxide (Milk Of Magnesia 30 Ml Udcup) 30 ml PO Q12H PRN PRN Reason: Constipation Morphine Sulfate (Morphine 2 Mg/Ml Vial) 2 mg SLOW IVP Q1H PRN PRN Reason: Breakthrough Pain/Agitation Stop: 06/30/20 01:15 Ondansetron HCl (Ondansetron Pf 4 Mg/2 Ml Vial) 4 mg IVP Q6H PRN PRN Reason: Nausea/Vomiting Last Admin: 06/01/20 15:08 Dose: 4 mg Documented by: Propofol (Propofol 1,000 Mg/100 Ml Vial) 1,000 mg IV INF PRN; Protocol PRN Reason: TO ACHIEVE GOAL RASS Stop: 06/30/20 01:15 Last Admin: 05/31/20 01:15 Dose: 1,000 mg Documented by: Propofol (Propofol Bolus 1,000 Mg/100 Ml Vial) 20 mg IV Q5MIN PRN PRN Reason: BREAKTHROUGH AGITATION Stop: 06/30/20 01:15 Scopolamine (Scopolamine 1.5 Mg/72 Hour Patch) 1.5 mg TD Q3D [facility] Last Admin: 06/01/20 14:35 Dose: 1.5 mg Documented by: Sodium Chloride (Flush - Normal Saline 10 Ml Syringe) 10 ml IVF PRN PRN PRN Reason: Saline Flush Sodium Chloride (Flush - Normal Saline 10 Ml Syringe) 10 ml IVF Q12HR JAMSHID Last Admin: 06/02/20 09:12 Dose: 10 ml Documented by: Ticagrelor (Ticagrelor 90 Mg Tablet) 90 mg PO BID JAMSHID Last Admin: 06/02/20 09:12 Dose: 90 mg Documented by: Vecuronium [place] (Vecuronium 10 Mg Vial) 10 mg IVP Q30M PRN PRN Reason: VENT COMPLIANCE Last Admin: 06/02/20 00:48 Dose: 10 mg Documented by: Zolpidem Tartrate (Zolpidem Tartrate 5 Mg Tab) 5 mg PO HS PRN PRN Reason: Insomnia Vital Signs & Weight: Vital Signs Temp Pulse Resp BP Pulse Ox 06/02/20 18:00 20 06/02/20 16:00 99.3 F 06/02/20 15:16 66 105/66 06/02/20 14:00 20 06/02/20 12:00 98.9 F 06/02/20 10:48 97 102/62 06/02/20 10:00 20 06/02/20 08:03 98 108/61 06/02/20 08:00 20 100 Admit Weight 150 lb Weight 150 lb 9.211 oz - Quality Measures Condition: Myocardial Infarction CV meds: Beta Chin: Yes, TAMI/ARB: Yes, ASA: Yes - Physical Exam General: other (imtubated.) HEENT: normocephaly Neck: no JVD/HJR Cardiac: regular rate and rhythm Lungs: clear to auscultation Neuro: other (unresponsive,) Abdomen: unremarkable Extremities: no edema - Labs Result Diagrams: 06/01/20 07:30 06/02/20 08:38 Troponin/CKMB CK-MB (CK-2) 74.3 ng/mL (0-6.6) H* 06/01/20 07:30 Troponin I 16.722 ng/mL (< 0.028) H* 06/02/20 08:38 - Telemetry Sinus rhythms and dysrhythmias: sinus rhythm - Assessment/Plan Assessment/Plan: 1. s/p large anterior PA. PTCA/stent to the LAD 2. Anoxic brain injury. Seizures noted on EEG. Pt. will be DNR per family. 3. prostate cancer. 4. tobacco abuse history. 5. V-tach. on amiodarone.
--- NOTE | 2020-06-02 20:20 | PRG ---
DATE OF SERVICE: 06/02/2020 SUBJECTIVE: Chico Olsen has had no neurological improvement. He was seen by Neurology and his EEG pattern is not one that would be consistent with complete functional recovery. OBJECTIVE: VITAL SIGNS: Respiratory rate is 20, FiO2 is at 40, blood pressure 104/67. LUNGS: Clear anteriorly. HEART: Regular rhythm. ABDOMEN: Soft. LABORATORY DATA: White count yesterday was 20. Sodium 138, potassium 3.8, chloride 106, bicarb 24, BUN 31, creatinine 0.9. ASSESSMENT AND PLAN: I had a long meeting with his brother at the bedside. His brother wanted him to be a do not resuscitate patient. If we do not see improvement over the next few days, his brother is likely to withdraw care. Based on my discussion with him, opt for comfort measures. Blood gas is not done today. Since yesterday, it did not show an acid-base disorder. His oximetry has been fine. CRITICAL CARE TIME: 30 minutes. Job ID: [id number]
[2020-06-02] MEDS: Ondansetron PF 4 MG/2 ML Vial IVP PRN (23:00)
[2020-06-02] MEDS: levETIRAcetam in NS 1,500 MG in Premix Bag 1 BAG IVPB SCH (23:10)
[2020-06-03] MEDS: fentaNYL Citrate/PF 2,000 MCG in Sodium Chloride 0.9% 60 ML IV SCH (00:51)
--- NOTE | 2020-06-03 07:41 | PDOC.HOSPP ---
- Subjective Encounter Date: 06/03/20 Encounter Time: 07:30 Subjective: intubated, unresponsive. - Objective Vital Signs & Weight: Vital Signs (12 hours) Temp Pulse Resp BP Pulse Ox 06/03/20 07:19 67 151/90 H 06/03/20 06:00 20 06/03/20 04:00 99.0 F 20 06/03/20 02:00 20 06/03/20 00:00 99.8 F H 20 06/02/20 22:00 20 06/02/20 20:00 99.3 F 20 100 Weight Admit Weight 150 lb Weight 150 lb 9.211 oz Most Recent Monitor Data Heart Rate from ECG 69 NIBP 130/74 NIBP BP-Mean 92 Respiration from ECG 18 SpO2 100 I&O: 06/02/20 06/03/20 06/04/20 06:59 06:59 06:59 Intake Total 3349 2827 Output Total 1543 2165 Balance 1806 662 Result Diagrams: 06/01/20 07:30 06/02/20 08:38 Hospitalist ROS - Medication Medications: Active Medications Generic Name Dose Route Start Last Admin Trade Name Freq PRN Reason Stop Dose Admin Aspirin 81 mg 05/31/20 09:00 06/02/20 09:12 Aspirin Chewable 81 Mg Tab PO 81 mg DAILY JAMSHID Administration Carvedilol 3.125 mg 05/31/20 09:00 06/02/20 20:45 Carvedilol 3.125 Mg Tab PO Not Given BID JAMSHID Sodium Chloride 1,000 mls @ 85 mls/hr 05/31/20 01:15 06/02/20 21:45 Normal Saline 0.9% IV 1,000 mls .[id number] JAMSHID Administration Dopamine HCl/Dextrose 250 mls @ 0 mls/hr 05/31/20 01:15 06/02/20 23:22 Dopamine 400 Mg/D5w 250 Ml IVPB 250 mls INF JAMSHID Administration Protocol As Directed Fentanyl Citrate 2,000 mcg/ 100 mls @ 0 mls/hr 05/31/20 01:15 06/03/20 00:51 Sodium Chloride IV 06/30/20 01:15 100 mls INF JAMSHID Administration Protocol Per Protocol Amiodarone HCl 450 mg/ 259 mls @ 0 mls/hr 06/01/20 10:15 06/02/20 18:04 Miscellaneous Medication 1 IVPB 259 mls each/ Dextrose/Water INF JAMSHID Administration Protocol As Directed Levetiracetam 1,500 mg/ Device 100 mls @ 100 mls/hr 06/03/20 00:00 06/02/20 23:10 IVPB 100 mls 0000,1200 JAMSHID Administration Levetiracetam 1,500 mg/ Device 100 mls @ 200 mls/hr 06/02/20 14:00 06/02/20 14:24 IVPB 100 mls 1400 JAMSHID Administration Levetiracetam 1,500 mg/ Device 100 mls @ 200 mls/hr 06/02/20 15:00 06/02/20 15:17 IVPB 100 mls 1500 JAMSHID Administration Lisinopril 2.5 mg 05/31/20 09:00 06/02/20 08:03 Lisinopril 2.5 Mg Tab PO Not Given DAILY JAMSHID Lorazepam 2 mg 05/31/20 01:15 06/02/20 00:48 Lorazepam 2 Mg/Ml Vial SLOW IVP 06/30/20 01:15 2 mg Q1H PRN Administration Breakthrough agitation Ondansetron HCl 4 mg 05/31/20 11:27 06/02/20 23:00 Ondansetron Pf 4 Mg/2 Ml Vial IVP 4 mg Q6H PRN Administration Nausea/Vomiting Propofol 1,000 mg 05/31/20 01:15 05/31/20 01:15 Propofol 1,000 Mg/100 Ml Vial IV 06/30/20 01:15 1,000 mg INF PRN Administration TO ACHIEVE GOAL RASS Protocol Scopolamine 1.5 mg 06/01/20 14:00 06/01/20 14:35 Scopolamine 1.5 Mg/72 Hour Patch TD 1.5 mg Q3D JAMSHID Administration Sodium Chloride 10 ml 05/31/20 09:00 06/02/20 20:46 Flush - Normal Saline 10 Ml Syringe IVF 10 ml Q12HR JAMSHID Administration Ticagrelor 90 mg 05/31/20 09:00 06/02/20 20:46 Ticagrelor 90 Mg Tablet PO 90 mg BID JAMSHID Administration Vecuronium [place] 10 mg 05/31/20 02:35 06/02/20 00:48 Vecuronium 10 Mg Vial IVP 10 mg Q30M PRN Administration VENT COMPLIANCE - Exam Neck: no JVD Heart: RRR, no murmur Respiratory: CTAB Gastrointestinal: soft, normal bowel sounds Extremities: no edema Hosp A/P (1) Anoxic brain injury Status: Acute (2) Acute myocardial infarction due to left coronary artery occlusion Code(s): I21.9 - ACUTE MYOCARDIAL INFARCTION, UNSPECIFIED Status: Acute (3) Ventricular tachycardia Code(s): I47.2 - VENTRICULAR TACHYCARDIA Status: Acute (4) Hypotension Status: Acute Qualifiers: Hypotension type: other hypotension type Qualified Code(s): I95.89 - Other hypotension (5) Cardiomyopathy Code(s): I42.9 - CARDIOMYOPATHY, UNSPECIFIED Status: Suspected Qualifiers: Cardiomyopathy type: ischemic Qualified Code(s): I25.5 - Ischemic cardiomyopathy - Plan on vent iv amiodarone for V tach on dopamine for hypotension/cardiogenic shock antoplatelet Tx no reurological improvement Dr Mei's input appreciatd
--- NOTE | 2020-06-03 08:37 | EKG ---
Test Reason : Blood Pressure : / mmHG Vent. Rate : 108 BPM Atrial Rate : 104 BPM P-R Int : 198 ms QRS Dur : 102 ms QT Int : 344 ms P-R-T Axes : 081 032 084 degrees QTc Int : 460 ms Undetermined rhythm Low voltage QRS ST elevaton suggesting lateral infarction Abnormal ECG Confirmed by JENNIFER LOVELL MD ([id number]) on 06/03/2020 8:36:55 AM Referred By: LATOYA Confirmed By:JENNIFER LOVELL MD
--- NOTE | 2020-06-03 08:37 | EKG ---
Test Reason : STAT Blood Pressure : / mmHG Vent. Rate : 117 BPM Atrial Rate : 117 BPM P-R Int : 196 ms QRS Dur : 088 ms QT Int : 338 ms P-R-T Axes : 076 -05 083 degrees QTc Int : 471 ms Sinus tachycardia with Premature atrial complexes with Abberant conduction Possible Left atrial enlargement Low voltage QRS Possible Inferior infarct , age undetermined Cannot rule out Anterior infarct , age undetermined Abnormal ECG Confirmed by LILIYA SHIRLEY, JENNIFER ([id number]) on 06/03/2020 8:37:12 AM Referred By: LATOYA Confirmed By:JENNIFER LOVELL MD
[2020-06-03] MEDS: TICAGRELOR 90 MG TABLET PO SCH ×2 (08:45→20:16)
[2020-06-03] MEDS: Aspirin Chewable 81 MG TAB PO SCH (08:45)
[2020-06-03] MEDS: Lisinopril 2.5 MG TAB PO SCH (08:54)
[2020-06-03] MEDS: Carvedilol 3.125 MG TAB PO SCH ×2 (08:54→20:13)
[2020-06-03] MEDS: Sodium Chloride 0.9% 1,000 ML IV SCH (11:53)
--- NOTE | 2020-06-03 12:20 | PDOC.PALPN ---
Palliative Progress Note - Subjective Intubated, mechanical ventilation. Sedated, dopamine. Brother at bedside - Objective Vital Signs: Vital Signs - Most Recent Temp Pulse Resp BP Pulse Ox 98.3 F 94 20 133/87 100 06/03/20 08:00 06/03/20 11:23 06/03/20 10:00 06/03/20 11:23 06/02/20 20:00 - Physical Exam Constitutional: NAD, ill appearing HEENT: moist MMs, sclera anicteric Deviation from normal: Mechanical ventilation, no sponatneous respirations Cardiovascular: RRR Gastrointestinal: soft, non-tender Genitourinary: thrasher catheter Musculoskeletal: no cyanosis, pulses present Deviation from normal: no purposeful response Skin: cap refill <2 seconds Deviation from normal: Non responsive - Assessment (1) Acute myocardial infarction due to left coronary artery occlusion Code(s): I21.9 - ACUTE MYOCARDIAL INFARCTION, UNSPECIFIED Current Visit: Yes Status: Acute (2) Anoxic brain injury Current Visit: Yes Status: Acute (3) Cardiomyopathy Code(s): I42.9 - CARDIOMYOPATHY, UNSPECIFIED Current Visit: Yes Status: Suspected Qualifiers: Cardiomyopathy type: ischemic Qualified Code(s): I25.5 - Ischemic cardiomyopathy (4) Hypotension Current Visit: Yes Status: Acute Qualifiers: Hypotension type: other hypotension type Qualified Code(s): I95.89 - Other hypotension (5) Ventricular tachycardia Code(s): I47.2 - VENTRICULAR TACHYCARDIA Current Visit: Yes Status: Acute - Plan Plan: Reviewed records. Brother relayed his understanding of his brothers poor prognosis, lack of meaningful recovery. We revisited his brothers expressed wishes. Patrick states he would like to select a hospice company and visit with them, then when he is ready to withdraw care have his brother admitted to hospice prior to extubation and allow comfort measures. He and his had to do a compassionate extubation with a 13 year old grandson 4 years ago. hospice list provided, he will discuss with his and select a company, then transition care when they are ready, maybe Saturday/Saturday/Saturday but appears they are leaning to sooner to prevent suffering and seek comfort at end of life. Communicated with Nona Jacob CM Communicated with Dr Sibley [40] minutes spent on this encounter with >50% of the time in counseling and coordination of care. - ROS Non Response: due to endotracheal tube, due to mental status
[2020-06-03] MEDS: Amiodarone 450 MG, Admixture Fee 1 EACH in Dextrose 5% in Water 250 ML IVPB SCH (13:01)
[2020-06-03] MEDS: levETIRAcetam in NS 1,500 MG in Premix Bag 1 BAG IVPB SCH (13:46)
--- NOTE | 2020-06-03 14:18 | PRG ---
DATE OF SERVICE: 06/03/2020 SUBJECTIVE: Mr. Olsen is essentially unchanged. He opens his eyes. He coughs and gags. He will not track or make eye contact. He will not follow commands even with painful stimulus. OBJECTIVE: VITAL SIGNS: Blood pressure 142/86, heart rate 95, respiratory rate 21, oximetry is 98%. LUNGS: Clear anteriorly. HEART: Regular rhythm. ABDOMEN: Soft. EXTREMITIES: Without asymmetry. LABORATORY DATA: White count 20.2, hemoglobin 13.6 platelets 187. Electrolytes are normal. PLAN: I had a long meeting with his brother. He actually handed me via his phone a copy of the living will which very clearly delineates that he would not want to be kept alive in this condition. His brother is just trying to decide when to withdraw care. There are no other therapeutic options from a brain injury standpoint. I have explained to him that if we were to continue to be aggressive, we are looking to tracheostomy and a PEG early next week, a long-term care hospital for 1 to 2 months and then a fdc. Very quickly tells me that his brother would not want that. Job ID: [id number]
--- NOTE | 2020-06-03 15:06 | PDOC.PALFU ---
Palliative Care Follow-up Note Follow up with patient brother and MPOA Patrick. He states he is electing to withdraw care either Saturday or Saturday. After consideration he decided against the additional support of Hospice. He is requesting 3 family be present with withdraw of care - Himself, [place], and patient girlfriend. Communicated with [employer] Tender and patient primary RN, as well as CCU charge nurse Isidoro. Dr Sibley aware of plan.
[2020-06-04] MEDS: Sodium Chloride 0.9% 1,000 ML IV SCH ×2 (00:07→12:37)
[2020-06-04] MEDS: levETIRAcetam in NS 1,500 MG in Premix Bag 1 BAG IVPB SCH ×2 (00:07→12:37)
[2020-06-04] MEDS: Amiodarone 450 MG, Admixture Fee 1 EACH in Dextrose 5% in Water 250 ML IVPB SCH (05:57)
[2020-06-04] MEDS: Carvedilol 3.125 MG TAB PO SCH (07:38)
[2020-06-04] MEDS: Lisinopril 2.5 MG TAB PO SCH (07:38)
[2020-06-04] MEDS: TICAGRELOR 90 MG TABLET PO SCH (08:36)
[2020-06-04] MEDS: Aspirin Chewable 81 MG TAB PO SCH (08:36)
[2020-06-04] MEDS: Lorazepam 2 MG/ML VIAL SLOW IVP PRN ×6 (09:42→19:27)
[2020-06-04] MEDS: Scopolamine 1.5 mg/72 hour Patch TD SCH (12:37)
[2020-06-04] MEDS: Morphine 4 MG/ML VIAL SLOW IVP PRN ×4 (13:29→19:27)
--- NOTE | 2020-06-04 14:03 | PRG ---
DATE OF SERVICE: 06/04/2020 SUBJECTIVE: Mr. Olsen's status is unchanged. He remains intubated. OBJECTIVE: VITAL SIGNS: Blood pressure 116/70, pulse 88, and temperature afebrile. LUNGS: Clear to auscultation. HEART: Regular rate and rhythm. ABDOMEN: Soft, nontender, and nondistended. EXTREMITIES: No edema. PERTINENT LABORATORY DATA: Hemoglobin 13.6, hematocrit 42.8. IMPRESSION: 1. Acute myocardial infarction. 2. Status post stent to the left anterior descending. 3. Ventricular tachycardia. 4. Previous tobacco abuse. 5. Anoxic brain injury with seizures noted. PLAN: The family has opted to withdraw care. Certainly seem reasonable. The patient's status has not changed. Did have significant anoxic brain injury present. From my standpoint, I have no further recommendations. also has been given to the family. Job ID: [id number]
--- NOTE | 2020-06-04 14:24 | PRG ---
DATE OF SERVICE: 06/04/2020 SUBJECTIVE: The patient's family has had a long conversation and have decided to withdraw support. This is quite likely to be done today. PHYSICAL EXAMINATION: VITAL SIGNS: He remains intubated with ventilator settings of rate of 12, tidal volume 500, PEEP of 5, FiO2 of 40%. Blood pressure 123/76. He is currently afebrile. GENERAL: Not responsive to verbal stimuli, on low-dose sedation. LUNGS: Coarse rales. HEART: Regular rate and rhythm. ABDOMEN: Soft. There is no organomegaly. EXTREMITIES: He has no cords. There is 1+ edema. LABORATORY DATA: None today. IMPRESSION: 1. Anoxic brain injury post prolonged CPR, most likely secondary to myocardial infarction. 2. Evolving post CPR seizures by EEG. RECOMMENDATIONS: We will continue support pending family decision to withdraw all support. Prognosis is poor. Critical care 30 minutes. Job ID: [id number]
--- NOTE | 2020-06-04 17:07 | PDOC.HOSPP ---
- Subjective Encounter Date: 06/04/20 - Objective Vital Signs & Weight: Vital Signs (12 hours) Temp Pulse Resp BP Pulse Ox 06/04/20 16:30 97.8 F 105 H 24 H 112/71 75 L 06/04/20 12:00 98.9 F 16 06/04/20 10:44 61 06/04/20 10:00 20 06/04/20 08:00 99.4 F 19 100 06/04/20 07:48 96 06/04/20 07:38 79 06/04/20 06:00 19 Weight Admit Weight 150 lb Weight 150 lb 9.211 oz Most Recent Monitor Data Heart Rate from ECG 106 NIBP 116/70 NIBP BP-Mean 85 Respiration from ECG 24 SpO2 86 I&O: 06/03/20 06/04/20 06/05/20 06:59 06:59 06:59 Intake Total 2827 2868.7 885 Output Total 2165 1683 420 Balance 662 1185.7 465 Result Diagrams: 06/01/20 07:30 06/02/20 08:38 Hospitalist ROS - Medication Medications: Active Medications Generic Name Dose Route Start Last Admin Trade Name Freq PRN Reason Stop Dose Admin Lorazepam 2 mg 06/04/20 11:06 06/04/20 15:44 Lorazepam 2 Mg/Ml Vial SLOW IVP 2 mg Q1H PRN Administration COMFORT POST EXTUBATION Morphine Sulfate 4 mg 06/04/20 11:05 06/04/20 14:30 Morphine 4 Mg/Ml Vial SLOW IVP 4 mg Q10MIN PRN Administration COMFORT AFTER EXTUBATION Sodium Chloride 10 ml 05/31/20 09:00 06/04/20 13:12 Flush - Normal Saline 10 Ml Syringe IVF 10 ml Q12HR JAMSHID Administration - Exam Neck: supple, no JVD Heart: RRR Respiratory: tachypneic Hosp A/P (1) Acute respiratory failure with hypoxia Code(s): J96.01 - ACUTE RESPIRATORY FAILURE WITH HYPOXIA Status: Acute (2) Acute myocardial infarction due to left coronary artery occlusion Code(s): I21.9 - ACUTE MYOCARDIAL INFARCTION, UNSPECIFIED Status: Acute (3) Anoxic brain injury Status: Acute (4) Hypotension Status: Acute Qualifiers: Hypotension type: other hypotension type Qualified Code(s): I95.89 - Other hypotension - Plan The patient was terminally extubated today. Continue comfort care measures.
[2020-06-04 19:53] VITALS: BP 147/70; TEMP 99
--- NOTE | 2020-06-07 02:12 | EKG ---
Test Reason : AFTER CODE BLUE Blood Pressure : / mmHG Vent. Rate : 114 BPM Atrial Rate : 114 BPM P-R Int : 176 ms QRS Dur : 086 ms QT Int : 514 ms P-R-T Axes : 072 000 083 degrees QTc Int : 708 ms Sinus rhythm with PVC's Low voltage QRS Possible Inferior infarct (cited on or before 30-MAY-2020) Cannot rule out Anteroseptal infarct (cited on or before 30-MAY-2020) T wave abnormality, consider lateral ischemia Abnormal ECG Confirmed by JENNIFER LOVELL MD ([id number]) on 06/07/2020 2:12:26 AM Referred By: LILIYA Confirmed By:JENNIFER LOVELL MD
--- NOTE | 2020-06-07 02:13 | EKG ---
Test Reason : AFTER CODE BLUE Blood Pressure : / mmHG Vent. Rate : 092 BPM Atrial Rate : 092 BPM P-R Int : 192 ms QRS Dur : 090 ms QT Int : 514 ms P-R-T Axes : 076 -02 088 degrees QTc Int : 635 ms Sinus rhythm with marked sinus arrhythmia with occasional Premature ventricular complexes Low voltage QRS Cannot rule out Inferior infarct (cited on or before 30-MAY-2020) Cannot rule out Anteroseptal infarct (cited on or before 30-MAY-2020)Recent Prolonged QT Abnormal ECG Confirmed by JENNIFER LOVELL MD ([id number]) on 06/07/2020 2:12:44 AM Referred By: LILIYA Confirmed By:JENNIFER LOVELL MD
--- NOTE | 2020-06-07 14:22 | DIS ---
DATE OF ADMISSION: 05/30/2020 DATE OF DISCHARGE: 06/04/2020 ADMITTING DIAGNOSIS: Acute anterior myocardial infarction. His other diagnosis includes prostate cancer. DISCHARGE DIAGNOSES: 1. Large anterior myocardial infarction. 2. Anoxic brain injury. 3. Acute respiratory failure. DATE OF EXPIRATION: The patient did on 06/04/2020. HOSPITAL COURSE: He had been deemed a do not resuscitate by the family. The patient came in with an acute anterior myocardial infarction, was taken to the cardiac section laborer, was found to have diffuse disease. He underwent a successful angioplasty and stent placement to the left anterior descending artery. At that time, he was found to have severe impairment of the left ventricular systolic function. He also had a significant stenosis in the first obtuse marginal branch of left circumflex. Unfortunately, he did not neurologically respond after the procedure and actually was resuscitated at home by the family prior to being brought in. He subsequently was removed from the ventilator and on 06/04, five days after being admitted to the hospital after he had a cardiac arrest at home. I believe the time was 0730 . The cause of would be cardiac failure due to large anterior myocardial infarction and anoxic brain injury. Job ID: [id number] [facility] [place] [facility]
== END 2020-06-04 20:43 | disposition expired | DRG 246 ==
LOC: ERS 22:28 → CCL 23:23 → CCU 23:30 → ONC 06-04 16:19
PROVIDERS: ADMIT Internal Medicine Cardiovascular Disease; ATTEND Internal Medicine Cardiovascular Disease
PROC: B2111ZZ Fluoroscopy of Multiple Coronary Arteries using Low Osmolar Contrast (ICD-10-PCS; principal; 2020-05-30)
PROC: 027034Z Dilation of Coronary Artery, One Artery with Drug-eluting Intraluminal Device, Percutaneous Approach (ICD-10-PCS; 2020-05-30)
PROC: 02C03ZZ Extirpation of Matter from Coronary Artery, One Artery, Percutaneous Approach (ICD-10-PCS; 2020-05-30)
PROC: B2151ZZ Fluoroscopy of Left Heart using Low Osmolar Contrast (ICD-10-PCS; 2020-05-30)
PROC: 4A023N7 Measurement of Cardiac Sampling and Pressure, Left Heart, Percutaneous Approach (ICD-10-PCS; 2020-05-30)
PROC: 5A1955Z Respiratory Ventilation, Greater than 96 Consecutive Hours (ICD-10-PCS; 2020-05-31)
PROC: 0BH17EZ Insertion of Endotracheal Airway into Trachea, Via Natural or Artificial Opening (ICD-10-PCS; 2020-05-31)
DX: I21.09 ST elevation (STEMI) myocardial infarction involving other coronary artery of anterior wall (principal); R40.20 Unspecified coma; J96.01 Acute respiratory failure with hypoxia; G93.1 Anoxic brain damage, not elsewhere classified; I47.2 Ventricular tachycardia; I25.5 Ischemic cardiomyopathy; I95.89 Other hypotension; F17.210 Nicotine dependence, cigarettes, uncomplicated; I25.10 Atherosclerotic heart disease of native coronary artery without angina pectoris; I46.9 Cardiac arrest, cause unspecified; C61 Malignant neoplasm of prostate; Z66 Do not resuscitate; Z20.828 Contact with and (suspected) exposure to other viral communicable diseases
CPT/HCPCS: 36415; 36416; 51702; 71045; 80048; 80053; 80307; 82550; 82553; 82805; 83690; 83735; 84100; 84443; 84484; 85025; 85347; 85610; 85730; 87635; 92941; 92950; 92973; 93005; 93010; 93306; 93458; 94003; 95712; 95819; 95957; 96365; 96375; C1757; C1874; C9606; J0282; J0461; J1265; J1644; J1953; J2060; J2270; J2405; J2704; J3010; J3490; J7070; U0003